=== PATIENT | female | born 1980 | race Native Hawaiian/Other Pacific Islander ===

== ENCOUNTER 2017-04-25 20:14 | Emergency (ER) | payer OTHER ==
[~2017-04-25] VITALS: Ht 154.9 cm; Wt 62.0 kg
[2017-04-25 20:16] VITALS: BP 133/80; PULSE 82; RESP 16; TEMP 98.6; O2SAT 99
--- NOTE | 2017-04-25 22:00 | PD ---
Physical Exam Time Seen by Provider: 21:58 Narrative 36yo F c/o sharp pain behind R eye 2 days ago. Decreased appetite. +nausea, vomiting, sweats, shakiness. Had chest pain earlier today, denies now. Denies SOB, fevers, change in vision. Patient seen in triage. VS reviewed. Awaiting bed placement. Data Data Last Documented VS Vital Signs Date Time Temp Pulse Resp B/P (MAP) Pulse Ox O2 Delivery O2 Flow Rate FiO2 04/25/17 20:16 98.6 82 16 133/80 (97) 99 Room Air MDM Supervised Visit with MALICK: No Scripts No Active Prescriptions or Reported Meds Hellen Mathews Apr 25, 2017 22:00
== END 2017-04-25 23:05 | disposition left against medical advice (07) ==
LOC: NED 20:14
DX: H57.11 Ocular pain, right eye (principal); R11.2 Nausea with vomiting, unspecified; R07.9 Chest pain, unspecified; Z53.21 Procedure and treatment not carried out due to patient leaving prior to being seen by health care provider
CPT/HCPCS: 99281